=== PATIENT | female | born 1965 | race Caucasian/White ===

== ENCOUNTER → 2018-04-07 | Outpatient (CLI) | payer OTHER | LOC: M.CT 14:03 | DX: Z13.6 Encounter for screening for cardiovascular disorders (principal) ==

== ENCOUNTER → 2018-05-11 | Outpatient (CLI) | payer OTHER ==
--- NOTE | 2018-05-11 11:24 | 2DMMODE ---
[place] [address] 2 D/M-MODE ECHOCARDIOGRAM Name: KALPESH BROWN Room: [facility]#: [id number] Admission: 05/11/18 Attend Phys: Baudilio Rodríguez Discharge: Date of : 61 Date of Service: 05/11/18 1123 Report #: [id number] THIS REPORT FOR: //name// APPROVED REPORT Study performed: 05/11/2018 09:46:06 EXAM: Limited 2D Echocardiogram Patient Location: Out-Patient BSA: 1.66 HR: 76 bpm BP: 102/68 mmHg Other Information Study Quality: Good Indications Palpitations 2D Dimensions IVSd: 11.71 (7-11mm) LVDd: 36.93 mm PWd: 8.93 (7-11mm) LVDs: 18.58 (25-40mm) Aortic Root: 25.45 mm Left Ventricle The left ventricle is normal size. There is normal LV segmental wall motion. There is normal left ventricular wall thickness. Left ventricular systolic function is normal. The left ventricular ejection fraction is within the normal range. LVEF is 60-65%. Right Ventricle The right ventricle is normal size. The right ventricular systolic function is normal. Atria The left atrium size is normal. The right atrium size is normal. Aortic Valve Aortic valve leaflets are mildly thickened. Mitral Valve The mitral valve [place] [address] 2 D/M-MODE ECHOCARDIOGRAM Name: KALPESH BROWN Room: [facility]#: [id number] Admission: 05/11/18 Attend Phys: Baudilio Rodríguez Discharge: Date of : 61 Date of Service: 05/11/18 1123 Report #: [id number] Tricuspid Valve The tricuspid valve is normal in structure. Pulmonic Valve The pulmonary valve is normal in structure. Great Vessels The aortic root is normal in size. IVC is normal in size and collapses >50% with inspiration. Pericardium There is no pericardial effusion. <Conclusion> The left ventricle is normal size. There is normal left ventricular wall thickness. Left ventricular systolic function is normal. The left ventricular ejection fraction is within the normal range. LVEF is 60-65%. The right ventricle is normal size. The left atrium size is normal. Aortic valve leaflets are mildly thickened. The mitral valve is normal in structure. The tricuspid valve is normal in structure. IVC is normal in size and collapses >50% with inspiration. There is no pericardial effusion. There is normal LV segmental wall motion. <ELECTRONICALLY SIGNED> By: Brad Xavier MD, [facility] 05/11/18 1123 112 Brad Xavier MD, FACC /INF
== END ==
LOC: M.CRD 05-10 14:00
DX: R00.2 Palpitations (principal)